=== PATIENT | female | born 2000 | race Two or more races ===

== ENCOUNTER 2024-10-20 09:27 | Inpatient (IN) | payer OTHER ==
[~2024-10-20] VITALS: Ht 142.2 cm; Wt 93.4 kg
--- NOTE | 2024-10-20 10:04 | NUR ---
PTE ALERTA Y ORIENTADA X3 EN COMPANIA DE MAMA REFIERE VENIR POR QUE FUE DIAGNOSTICADA CON DENGUE HEMORRAGICO Y LA MANDAR[place] A CHET DE ERMERGENCIAS CON RESULTADOS DE LABORATORIOS DE HO[place] CON PLAQUETAS EN (36). PTE AL MOMENTO DE VITALES NO PRESENTA FIEBRE. SE OBSERVA CON RONSAS EN EXTREMIDADES SUP[ERIO RES.
[2024-10-20] MEDS ORDERED: 0.9 % SODIUM CHLORIDE 1,000 ML IV SCH (11:45)
[2024-10-20] MEDS ORDERED: ACETAMINOPHEN 500 MG GEL..CAP PO ONE (11:45)
--- NOTE | 2024-10-20 12:59 | NUR ---
SE ORIENTA A PACIENTE SOBRE [place] MEDICO, REFIERE ENTENDER. SE REALIZAN MUESTRAS DE LABORATORIO BAJO MEDIDAS ASPETICAS. SE ADMINISTRAN MEDICAMENTOS STEVE ORDEN MEDICA. PACIENTE MANEJADA POR . PENDIENTE RE-EVALUACION MEDICA.
[2024-10-20 14:15] LABS: HEMATOCRIT 43.9 % (36.0-45.00); MEAN CELL VOLUME 85.6 fL (80.00-100.00); MEAN CORPUSCULAR HEMOGLOBIN 29.3 pg (27.00-32.0); MEAN CORPUSCULAR HGB CONC 34.3 g/dl (32.0-36.0); RED BLOOD COUNT 5.13 M/uL (4.00-6.00)
[2024-10-20 14:22] LABS: INR 0.99; PARTIAL THROMBOPLASTIN TIME 31.6 SECONDS (22.0-34.0); PROTHROMBIN TIME 10.8 SECONDS (9.0-11.5)
[2024-10-20 14:35] LABS: ALBUMIN 2.8 gm/dL (3.4-5.0); BILIRUBIN TOTAL 0.3 mg/dL (0.3-1.2); CALCIUM 8.6 mg/dL (8.5-10.1); CREATININE SERUM 0.45 mg/dL (0.55-1.02); GFR 172.66; POTASSIUM 4.18 mEq/L (3.5-5.1); TOTAL PROTEIN 6.8 gm/dL (6.4-8.2)
[2024-10-20 14:50] LABS: PLATELET COUNT 54 K/uL (150-450)
[2024-10-20 15:26] LABS: PH,URINE 6.5 (5.0-8.0); URINE APPEARANCE Clear; URINE BILIRRUBIN Negative (NEGATIVE); URINE BLOOD Negative; URINE COLOR Yellow; URINE GLUCOSE Negative (NEGATIVE); URINE KETONE Negative (NEGATIVE); URINE LEUKOCYTE Negative; URINE NITRATE Negative
[2024-10-20 15:31] LABS: URINE BACTERIA 400.2 uL (0.0-1933); URINE EPITHELIAL CELLS 12.9 uL (0.0-38.8); URINE WBC 2.5 uL (0.0-23.2)
[2024-10-20 15:58] LABS: URINE MUCUS SCANT; URINE PROTEIN 100 (NEGATIVE)
[2024-10-20] MEDS ORDERED: ONDANSETRON HCL 4 MG in 0.9 % SODIUM CHLORIDE 50 ML IV PRN (17:45)
[2024-10-20] MEDS ORDERED: ACETAMINOPHEN 325 MG TABLET PO SCH (18:00)
[2024-10-20] MEDS ORDERED: ACETAMINOPHEN 500 MG GEL..CAP PO PRN (18:21)
[2024-10-20] MEDS ORDERED: PANTOPRAZOLE SODIUM 40 MG/VIAL VIAL IV SCH (21:00)
[2024-10-20 21:32] VITALS: BP 111/74; O2SAT 96
[2024-10-21 01:52] VITALS: BP 126/77; O2SAT 96
[2024-10-21 07:33] LABS: ALBUMIN 2.6 gm/dL (3.4-5.0); BILIRUBIN TOTAL 0.37 mg/dL (0.3-1.2); BILIRUBIN,CONJUGATED 0.1 mg/dL (0.0-0.2); BILIRUBIN,UNCONJUGATED 0.27 mg/dL (0.0-0.6); TOTAL PROTEIN 6.3 gm/dL (6.4-8.2)
[2024-10-21 08:18] LABS: HEMATOCRIT 39.9 % (36.0-45.00); HEMOGLOBIN 13.3 g/dL (12.0-15.00); MEAN CELL VOLUME 86.5 fL (80.00-100.00); MEAN CORPUSCULAR HEMOGLOBIN 28.9 pg (27.00-32.0); MEAN CORPUSCULAR HGB CONC 33.4 g/dl (32.0-36.0); RED BLOOD COUNT 4.61 M/uL (4.00-6.00); RED CELL DISTRIBUTION WIDTH 13.5 % (11.5-14.5)
[2024-10-21 08:34] VITALS: BP 126/74; O2SAT 98
[2024-10-21 08:51] LABS: PLT IN CITRATE 21 K/uL (150-450)
[2024-10-21 09:08] LABS: PLATELET COUNT 58 K/uL (150-450)
[2024-10-21 17:36] VITALS: BP 110/76
[2024-10-22 02:03] VITALS: BP 102/68; O2SAT 96
[2024-10-22 08:44] VITALS: BP 112/76; O2SAT 99
[2024-10-22 08:54] LABS: HEMATOCRIT 38.6 % (36.0-45.00); HEMOGLOBIN 12.7 g/dL (12.0-15.00); MEAN CELL VOLUME 87.2 fL (80.00-100.00); MEAN CORPUSCULAR HEMOGLOBIN 28.7 pg (27.00-32.0); RED BLOOD COUNT 4.43 M/uL (4.00-6.00); RED CELL DISTRIBUTION WIDTH 13.8 % (11.5-14.5)
[2024-10-22 08:55] LABS: PLATELET COUNT 108 K/uL (150-450)
[2024-10-22 15:58] VITALS: BP 130/78; O2SAT 96
== END 2024-10-22 17:32 | disposition home or self-care (01) | DRG 866 ==
LOC: ER 09:29 → MEDI 20:17
PROVIDERS: Emergency Medicine; General Practice; Internal Medicine; ADMIT Internal Medicine; ATTEND Internal Medicine
DX: A90 Dengue fever [classical dengue] (principal); Q87.11 Prader-Willi syndrome; R74.01 Elevation of levels of liver transaminase levels; R50.9 Fever, unspecified; D72.819 Decreased white blood cell count, unspecified; Z20.822 Contact with and (suspected) exposure to COVID-19